=== PATIENT | male | born 1960 | race Caucasian/White ===

== ENCOUNTER → 2016-09-09 | Outpatient (CLI) | payer OTHER | END | disposition home or self-care (01) | LOC: PCVCCLINIC 11:00 | PROVIDERS: ATTEND Internal Medicine Cardiovascular Disease | DX: E78.00 Pure hypercholesterolemia, unspecified (principal); I25.10 Atherosclerotic heart disease of native coronary artery without angina pectoris; I10 Essential (primary) hypertension; G45.9 Transient cerebral ischemic attack, unspecified; G47.30 Sleep apnea, unspecified | CPT/HCPCS: 80061; G0463 ==

== ENCOUNTER → 2017-05-05 | Outpatient (CLI) | payer OTHER ==
--- NOTE | 2017-05-05 09:49 | PCVCIMAG ---
EXAM: BILATERAL CAROTID DUPLEX INDICATION: Carotid Occlusive Disease. FINDINGS: Doppler Measurements (centimeters per second): RIGHT: Peak CCA-78, Peak ECA-104, Diastolic ICA-23, Peak ICA-72, ICA/CCA Ratio-0.9. LEFT: Peak CCA-88, Peak ECA-76, Diastolic ICA-27, Peak ICA-78, ICA/CCA Ratio-0.9. RIGHT CAROTID: The carotid bulb has minimal plaque. The proximal internal carotid artery shows no significant stenosis. The common carotid artery shows no significant stenosis. The external carotid artery shows no significant stenosis. LEFT CAROTID: The carotid bulb has no significant plaque. The proximal internal carotid artery shows no significant stenosis. The common carotid artery shows no significant stenosis. The external carotid artery shows no significant stenosis. Antegrade flow in both vertebral arteries. IMPRESSION: No significant stenosis of the right internal carotid artery with minimal plaque. No significant stenosis of the left internal carotid artery with no significant plaque. LOC:[place] [id number]
--- NOTE | 2017-05-05 10:00 | PCVCIMAG ---
APPROVED REPORT Exam: Stress Echocardiogram Indication: CAD s/p WI,Stent in RCA, Hyperlipidemia Patient Location: Echo lab Stress Nurse: Jumana Stratton RN Status: routine Ht: 5 ft 11 in HR: 84 bpm BP: 130/78 mmHg Rhythm: NSR Medical History Medical History: CAD s/p stent, HTN Procedure The patient underwent an Exercise Stress Test using the Son Protocol. Blood pressure, heart rate, and EKG were monitored. An Echocardiogram was performed by [facility] technician in four stages in quad fashion. At peak stress, four selected images were obtained and placed side by side with resting images for comparison. Stress Test Details Stress Test: Exercise stress testing was performed using a Son protocol. HR Resting HR: 84 bpmMax Heart Rate (APMHR): 162 bpm Max HR Achieved: 142 bpmTarget HR (85% APMHR): 137 bpm % of APMHR: 87 Recovery HR: 96 bpm HR response to stress: Normal HR response to stress BP Resting BP: 130/78 mmHg Max BP: 160/80 mmHg Recovery BP: 154/78 mmHg ECG Resting ECG: Sinus Rhythm Stress ECG: Sinus Rhythm ST Change: Non-ischemic Maximum ST Deviation: 1 mm Arrhythmia: Rare PVCs at peak exercise Recovery ECG: Sinus Rhythm Recovery ST Change: Non-ischemic Recovery ST Deviation: 0.7 mm Recovery Arrhythmia: None Clinical Reason for Termination: Dyspnea, Maximal Effort Stress Symptoms: Fatigue Exercise duration: 9 min 30 sec Highest Stage Achieved: Stage 4: 4.2 mph at 16% grade. Exercise capacity: 11.90 METs Overall Exercise Capacity for Age: Average Angina Score: None Stress ECG Conclusion The patient exercised according to the SON Protocol for 9:30 min:s, achieving a work level of Max. METS:11.90.The resting heart rate of 84 bpm lindsey to a maximal heart rate of 142 bpm. This value represents 87% of the maximal, age-predicted heart rate. The resting blood pressure of 130/78 mmHg, lindsey to a maximum blood pressure of 160/80 mmHg. The exercise test was stopped due to fatigue and dyspnea. Gleason Treadmill Score is 4.0 which is Moderate risk. Pre-Stress Echo The resting Echocardiogram showed normal left ventricular contractility with an estimated Ejection Fraction of about >55%. The resting Echocardiogram demonstrated wall motion abnormality in the basal inferior wall. 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 Post-Stress Echo The stress Echocardiogram showed normal left ventricular contractility with an estimated Ejection Fraction of about 60-65%. The stress Echocardiogram demonstrated wall motion abnormality in the basal inferior wall. 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 No other wall motion abnormalities seen. Clinical No new clinical or ECG evidence for ischemia. Conclusion Clinical Response: Non-ischemic Exercise Capacity: Average Stress ECG Response: Non-ischemic Stress Echo Images: Non-ischemic Other Information Study Quality: Adequate
== END | disposition home or self-care (01) ==
LOC: PCVCIMAG 08:06
PROVIDERS: ATTEND Internal Medicine Cardiovascular Disease
DX: I65.23 Occlusion and stenosis of bilateral carotid arteries (principal); I25.10 Atherosclerotic heart disease of native coronary artery without angina pectoris; I10 Essential (primary) hypertension; E78.5 Hyperlipidemia, unspecified; I25.2 Old myocardial infarction; I49.3 Ventricular premature depolarization; G47.30 Sleep apnea, unspecified; Z95.5 Presence of coronary angioplasty implant and graft; Z86.73 Personal history of transient ischemic attack (TIA), and cerebral infarction without residual deficits
CPT/HCPCS: 93325; 93351; 93880